=== PATIENT | male | born 1995 | race Two or more races ===

== ENCOUNTER 2020-06-10 01:01 | Emergency (ER) | payer SELFPAY ==
[~2020-06-10] VITALS: Ht 177.8 cm; Wt 72.0 kg
--- NOTE | 2020-06-10 03:37 | RAD ---
INDICATION: Reason: SYNCOPE / Spl. Instructions: / History: COMPARISON: None. FINDINGS: 2 view of chest obtained. No focal airspace consolidation or pulmonary edema. Cardiac silhouette is unremarkable. There are some air-filled prominence of the partially visualized colon at the upper abdomen. IMPRESSION: * No focal airspace consolidation or edema. Electronically signed by: Ton Pritchett MD (06/10/2020 3:34 AM) [id number]
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
[2020-06-10 04:18] LABS: BASO % 0 % (0-3); EOS % 0 % (0-3); HEMOGLOBIN 16.3 g/dL (13.0-17.5); LYMPH # 1.4 x10^3/uL (1.0-4.8); LYMPH % 12 % (24-48); MEAN CORPUSCULAR HEMOGLOBIN 33 pg (25-35); MEAN CORPUSCULAR HGB CONC 35 g/dL (31-37); MEAN CORPUSCULAR VOLUME 95 fL (79-100); MONO % 8 % (0-9); NEUT # 9.8 x10^3/uL (1.8-7.7); NEUT % 80 % (31-73); PLATELET COUNT 230 x10^3/uL (140-400); RED BLOOD COUNT 4.97 x10^6/uL (4.30-5.70); RED CELL DISTRIBUTION WIDTH 13.6 % (11.5-14.5); WHITE BLOOD COUNT 12.3 x10^3/uL (4.0-11.0)
[2020-06-10 04:27] LABS: ETHANOL < 10 mg/dL (0-10); SALIC < 2.8 mg/dL (2.8-20.0)
[2020-06-10 04:28] LABS: CALCIUM 8.8 mg/dL (8.5-10.1); CREATININE 1.3 mg/dL (0.7-1.3); GFR 66.7; POTASSIUM 3.5 mmol/L (3.5-5.1)
[2020-06-10 04:35] LABS: ALBUMIN 3.9 g/dL (3.4-5.0); ALBUMIN/GLOBULIN RATIO 1.1 (1.0-1.7); TOTAL BILIRUBIN 0.5 mg/dL (0.2-1.0); TOTAL PROTEIN 7.3 g/dL (6.4-8.2)
[2020-06-10 05:30] VITALS: BP 115/63
--- NOTE | 2020-06-10 12:29 | EKG ---
[facility] [address] [place] [address] Test Date: 2020-06-10 Test Time: 03:37:56 Pat Name: VERONICA CARDENAS Department: Room: Gender: [employer]: : 1995 Requested By: JASMIN WHITNEY Order Number: [id number] Reading MD: Measurements Intervals [place] Rate: 92 P: 70 OK: 142 QRS: 51 QRSD: 98 T: 15 QT: 334 QTc: 418 Interpretive Statements SINUS RHYTHM OTHERWISE NORMAL ECG RI6.01 No previous ECG available for comparison
== END 2020-06-10 05:30 | disposition home or self-care (01) ==
LOC: ER 01:01
DX: R55 Syncope and collapse (principal); R21 Rash and other nonspecific skin eruption; F19.10 Other psychoactive substance abuse, uncomplicated; F17.200 Nicotine dependence, unspecified, uncomplicated; Z98.890 Other specified postprocedural states
CPT/HCPCS: 36415; 71046; 80053; 80329; 84484; 85025; 93005; 99285; G0480